=== PATIENT | female | born 1980 | race Caucasian/White ===

== ENCOUNTER → 2023-08-19 | Outpatient (CLI) | payer OTHER ==
--- NOTE | 2023-08-19 14:02 | P.GSCN ---
History of Present Illness Consult date: 08/19/23 Reason for Consult: abnormal left breast mammogram Requesting physician: August Felder History of present illness: Glenna is a 43 year old female seen in consultation for Dr. Felder regarding a left breast ultrasound abnormality. She had a bilateral mammogram on 05-21-22 which led to a left breast ultrasound and this was requested to be repeated in 6 months. She had a left breast mammogram and ultrasound on 12-15-22 which was BIRAD 3 and recommended to repeat left breast evaluation in 6 months.. She has some nodularity in the lateral aspect of her left breast which has been present for at least 26 years. It gets more full just before her menstrual cycle but then goes down. It has not changed recently. She has no other new lumps masses or nodules of concern in her breast. She has however been getting repeat left breast radiographic evaluations for the past several years and would like to have more definitive answer as to what is happening in that breast. Complaining of any recent trauma or infection in her breast. She is not complaining of any nipple discharge or skin changes. She has never had any surgery on her breast. 07-07-[address] Felder review mammogram results 05-21-22 12-15-22 order new radiographs of the breast; bilateral mammogram and left breast ultrasound now Caffeine: 2 cups coffee/day nicotine: < 1 PPD for 20 years chocolate: occasional BCP: depo shot one time many years ago hormoens: none Family History: mother: esophogeal cancer, smoker maternal grandmother: cervical cancer paternal grandmother: lung cancer Hormonal History: menarche: 13 , breast fed: no, age at first : 16 periods irregular, LMP: 2 weeks ago Surgical History: tubal Medical History: D3 Social History: nicotine: as above alcohol: none drugs: Marijuana daily for anxiety Review of Systems - Constitutional Reports sweats - EENT Eyes: denies blurred vision Ears: deny: decreased hearing, tinnitus Ears, nose, mouth and throat: Denies dysphagia - Breasts bilateral: as per HPI - Cardiovascular Denies chest pain, Denies shortness of breath - Respiratory Denies cough, Denies 7 - Gastrointestinal Reports as per HPI - Genitourinary Genitourinary: Denies dysuria, Denies hematuria Menstruation: Reports menses variable - Integumentary Denies rash, Denies unusual bruising - Neurological Denies headaches, Denies syncope - Psychiatric Reports anxiety - Endocrine Reports fatigue - Hematologic/Lymphatic Reports as per HPI - Allergic/Immunologic Reports seasonal allergies Medications and Allergies Allergies Allergy/AdvReac Type Severity Reaction Status Date / Time No Known Allergies Allergy Verified 08/19/23 13:10 Surgical - Exam - General no distress - Eyes normal ocular movement - ENT no hearing loss - Neck trachea midline - Respiratory normal respiratory effort, clear to auscultation - Cardiovascular Heart Sounds: normal: S1, S2 - Abdomen Abdomen: soft, non tender, no guarding, no rigid, no rebound - Integumentary normal turgor - Neurologic no disoriented, no combative - Musculoskeletal normal gait - Psychiatric oriented to time, oriented to person, oriented to place, speech is normal, memory intact Breast Exam: BRA: 34C Inspection: Right breast larger than left breast, right breast grade 2/3 ptosis left breast stage II ptosis Palpation: Right breast: Multi positional exam dense tissue with fibrocystic changes Right axilla: No adenopathy of concern Left breast: Multi positional exam dense tissue, increased nodularity upper outer quadrant region Left axilla: No adenopathy of concern Results Patient's mammogram from last year reviewed Assessment and Plan Assessment: Impession: Chronic nodularity left breast Fibrocystic breast changes Nicotine dependence Plan: Bilateral mammogram with possible left breast ultrasound Patient is going to consider lifestyle modification, caffeine/nicotine/marijuana may all contribute to fibrocystic breast changes/patient is perimenopausal and hormone fluctuations may also contribute. To breast changes Patient will follow-up after radiographic evaluation of the breast CC: Dr. Hilliard
[2023-08-19 14:08] VITALS: BP 125/82; PULSE 88; RESP 16; TEMP 97.7
== END ==
LOC: WWCWWP 12:57
PROVIDERS: ATTEND Surgery
DX: N63.20 Unspecified lump in the left breast, unspecified quadrant (principal); N60.11 Diffuse cystic mastopathy of right breast; F17.210 Nicotine dependence, cigarettes, uncomplicated

== ENCOUNTER → 2023-09-09 | Outpatient (CLI) | payer OTHER ==
--- NOTE | 2023-09-10 11:44 | MM ---
Reason for Exam: Additional evaluation requested from abnormal screening. Last screening mammogram was performed 9 month(s) ago. Patient History: Menarche at age 13. First Full-Term at age 16. Last menstrual period: 09/06/2023 Risk Values: Annetta 5 year model risk: 0.5%. NCI Lifetime model risk: 6.5%. Prior Study Comparison: 05/20/2021 Bilateral Screening Mammogram, Unknown. 06/03/2021 Left Diagnostic Mammogram, Unknown. 06/03/2021 Left Diagnostic Ultrasound, Unknown. 12/18/2021 Left Diagnostic Mammogram, Unknown. 05/21/2022 Left Diagnostic Mammogram, Unknown. 12/15/2022 Bilateral Diagnostic Mammogram, Unknown. 12/15/2022 Left Diagnostic Ultrasound, Unknown. Tissue Density: The breasts are heterogeneously dense, which may obscure small masses. Findings: Analyzed By CAD. No evidence for distinct mass or microcalcification. No distortion seen. Overall Assessment: Benign, BI-RAD 2 Management: Screening Mammogram of both breasts in 1 year. Results were given to the patient verbally at the time of exam. Patient should continue monthly self-breast exams. A clinical breast exam by your physician is recommended on an annual basis. This exam should not preclude additional follow-up of suspicious palpable abnormalities. Note on Annetta scores and lifetime risk: 1. A Annetta score greater than 3% is considered moderate risk. If this is the case, consider specialist referral to assess eligibility for a risk reducing agent. 2. If overall lifetime risk for the development of breast cancer is 20% or higher, the patient may qualify for future screening with alternating mammogram and breast MRI. Electronically signed and approved by: Karel Pierre M.D. Radiologis
== END | disposition home or self-care (01) ==
LOC: RADMAMWWP 07:47
PROVIDERS: ATTEND Surgery
DX: R92.333 Mammographic heterogeneous density, bilateral breasts (principal); R92.8 Other abnormal and inconclusive findings on diagnostic imaging of breast
CPT/HCPCS: 77066; G0279; 77062

== ENCOUNTER → 2023-10-22 | Outpatient (CLI) | payer OTHER ==
[2023-10-22 15:10] VITALS: BP 121/84; PULSE 86; RESP 16; TEMP 98.7
--- NOTE | 2023-10-22 15:45 | P.PN ---
Subjective Progress Note Date: 10/22/23 Principal diagnosis: fibrocystic breast changes, fullness UOQ August Felder History of present illness: Glenna is a 43 year old female seen in consultation for Dr. Felder regarding a left breast ultrasound abnormality. She had a bilateral mammogram on 05-21-22 which led to a left breast ultrasound and this was requested to be repeated in 6 months. She had a left breast mammogram and ultrasound on 12-15-22 which was BIRAD 3 and recommended to repeat left breast evaluation in 6 months.. She has some nodularity in the lateral aspect of her left breast which has been present for at least 26 years. It gets more full just before her menstrual cycle but then goes down. It has not changed recently. She has no other new lumps masses or nodules of concern in her breast. She has however been getting repeat left breast radiographic evaluations for the past several years and would like to have more definitive answer as to what is happening in that breast. Complaining of any recent trauma or infection in her breast. She is not complaining of any nipple discharge or skin changes. She has never had any surgery on her breast. 07-07-[address] Felder review mammogram results 05-21-22 12-15-22 order new radiographs of the breast; bilateral mammogram and left breast ultrasound now 10-22-23 Bilateral mammogram on 09-09-23 personally interpreted; BIRAD 2 Planing of any new lumps masses or nodules of concern in either breast Does have intermittent fullness of the upper outer quadrant of the left breast however she states it has been like that since her daughter was born in 2005, she did not breast feed Caffeine: 2 cups coffee/day nicotine: < 1 PPD for 20 years chocolate: occasional BCP: depo shot one time many years ago hormoens: none Family History: mother: esophogeal cancer, smoker maternal grandmother: cervical cancer paternal grandmother: lung cancer Hormonal History: menarche: 13 , breast fed: no, age at first : 16 periods irregular, LMP: 2 weeks ago Surgical History: tubal Medical History: takes vitamin D3 Social History: nicotine: as above alcohol: none drugs: Marijuana daily for anxiety Review of Systems - Constitutional Reports sweats - EENT Eyes: denies blurred vision Ears: deny: decreased hearing, tinnitus Ears, nose, mouth and throat: Denies dysphagia - Breasts bilateral: as per HPI - Cardiovascular Denies chest pain, Denies shortness of breath - Respiratory Denies cough - Gastrointestinal Reports as per HPI - Genitourinary Genitourinary: Denies dysuria, Denies hematuria Menstruation: Reports menses variable - Integumentary Denies rash, Denies unusual bruising - Neurological Denies headaches, Denies syncope - Psychiatric Reports anxiety - Endocrine Reports fatigue - Hematologic/Lymphatic Reports as per HPI - Allergic/Immunologic Reports seasonal allergies Medications and Allergies Allergies Allergy/AdvReac Type Severity Reaction Status Date / Time No Known Allergies Allergy Verified 08/19/23 13:10 Objective - Vital Signs Vital signs: Vital Signs Temp 98.7 F 10/22/23 15:07 Pulse 86 10/22/23 15:07 Resp 16 10/22/23 15:07 BP 121/84 10/22/23 15:07 Pulse Ox 95 10/22/23 15:07 FiO2 Intake & Output 10/21/23 10/22/23 10/22/23 18:59 06:59 18:59 Weight 72.575 kg - Constitutional General appearance: Present: cooperative - EENT Eyes: Present: EOMI ENT: Present: hearing grossly normal - Neck Neck: Present: normal ROM - Respiratory Respiratory: bilateral: CTA - Cardiovascular Rhythm: regular Heart sounds: normal: S1, S2 - Integumentary Integumentary: Present: normal turgor - Musculoskeletal Musculoskeletal: Present: gait normal - Psychiatric Psychiatric: Present: A&O x's 3, appropriate affect, intact judgment & insight - Additional findings Additional findings: Breast Exam: BRA: 34C Inspection: Right breast larger than left breast, right breast grade 2/3 ptosis left breast stage II ptosis Palpation: Right breast: Multi positional exam dense tissue with fibrocystic changes Right axilla: No adenopathy of concern Left breast: Multi positional exam dense tissue, increased nodularity upper outer quadrant region Left axilla: No adenopathy of concern Assessment and Plan Assessment: Impession: Chronic nodularity left breast Fibrocystic breast changes Nicotine dependence fullness left breast UOQ Plan: Bilateral mammogram one year left breast ultrasound attention to UOQ then follow up Patient is going to consider lifestyle modification, caffeine/nicotine/marijuana (she has been decreasing these) may all contribute to fibrocystic breast changes/patient is perimenopausal and hormone fluctuations may also contribute. To breast changes Patient will follow-up after radiographic evaluation of the breast CC: Dr. Hilliard
== END ==
LOC: WWCWWP 14:41
PROVIDERS: ATTEND Surgery
DX: N60.11 Diffuse cystic mastopathy of right breast (principal); N63.21 Unspecified lump in the left breast, upper outer quadrant; F17.210 Nicotine dependence, cigarettes, uncomplicated

== ENCOUNTER → 2023-12-03 | Outpatient (CLI) | payer OTHER ==
--- NOTE | 2023-12-03 13:24 | USB ---
Patient History: Menarche at age 13. First Full-Term at age 16. Risk Values: Annetta 5 year model risk: 0.5%. NCI Lifetime model risk: 6.5%. Technique: Method: Targeted. Prior Study Comparison: 05/21/2022 Left Diagnostic Mammogram, Unknown. 12/15/2022 Bilateral Diagnostic Mammogram, Unknown. 09/09/2023 Bilateral MG 3D diag mammo w/cad MARIA D, [facility]. Findings: The area of palpable concern of the left breast, the axilla of the left breast and the retroareolar of the left breast were scanned. Targeted ultrasound 2:00 position, axilla, and subareolar region. At the patient's 2:00 palpable site, there is a large clump of dense fibroglandular tissue measuring 4.2 x 4.2 x 1.3 cm. No suspicious solid or cystic lesion. There is a benign subareolar cyst measuring 8 mm. No axillary lymphadenopathy.. Overall Assessment: Benign, BI-RAD 2 Management: Diagnostic Mammogram of both breasts in 9 months. Given the complex, dense breast tissue on mammogram, in time for the patient's annual exam. A clinical breast exam by your physician is recommended on an annual basis and results should be correlated with mammographic findings. This exam should not preclude additional follow-up of suspicious palpable abnormalities. Results were given to the patient verbally at the time of exam. Electronically signed and approved by: Carley Morales M.D. Radiologist
== END | disposition home or self-care (01) ==
LOC: RADUSWWP 12:43
PROVIDERS: ATTEND Surgery
DX: R92.8 Other abnormal and inconclusive findings on diagnostic imaging of breast (principal)

== ENCOUNTER → 2023-12-03 | Outpatient (CLI) | payer OTHER ==
--- NOTE | 2023-12-03 13:39 | P.PN ---
Subjective Progress Note Date: 12/03/23 Principal diagnosis: mass left breast UOQ 10/22/23 Principal diagnosis: fibrocystic breast changes, fullness UOQ August Felder History of present illness: Glenna is a 43 year old female seen in consultation for Dr. Felder regarding a left breast ultrasound abnormality. She had a bilateral mammogram on 05-21-22 which led to a left breast ultrasound and this was requested to be repeated in 6 months. She had a left breast mammogram and ultrasound on 12-15-22 which was BIRAD 3 and recommended to repeat left breast evaluation in 6 months.. She has some nodularity in the lateral aspect of her left breast which has been present for at least 26 years. It gets more full just before her menstrual cycle but then goes down. It has not changed recently. She has no other new lumps masses or nodules of concern in her breast. She has however been getting repeat left breast radiographic evaluations for the past several years and would like to have more definitive answer as to what is happening in that breast. Complaining of any recent trauma or infection in her breast. She is not complaining of any nipple discharge or skin changes. She has never had any surgery on her breast. 07-07-[address] Felder review mammogram results 05-21-22 12-15-22 order new radiographs of the breast; bilateral mammogram and left breast ultrasound now 10-22-23 Bilateral mammogram on 09-09-23 personally interpreted; BIRAD 2 Planing of any new lumps masses or nodules of concern in either breast Does have intermittent fullness of the upper outer quadrant of the left breast however she states it has been like that since her daughter was born in 2005, she did not breast feed 12-03-23 ultrasound of the left breast done on 12-03-23 this was BIRAD 2 cystic tissue noted but no discrete dense mass or nodule of concern noted; at the patient's 2:00 palpable site there is a large clump of dense fibroglandular tissue measuring 4.2 x 4.2 x 1.3 cm. No suspicious solid or cystic lesion was noted. There is a benign subareolar cyst measuring 8 mm. No axillary lymphadenopathy. The patient was recommended to have a diagnostic mammogram of both breast in 9 months Given the complex dense breast tissue Caffeine: 2 cups coffee/day nicotine: < 1 PPD for 20 years chocolate: occasional BCP: depo shot one time many years ago hormoens: none Family History: mother: esophogeal cancer, smoker maternal grandmother: cervical cancer paternal grandmother: lung cancer Hormonal History: menarche: 13 , breast fed: no, age at first : 16 periods irregular, LMP: 2 weeks ago Surgical History: tubal Medical History: takes vitamin D3 Social History: nicotine: as above alcohol: none drugs: Marijuana daily for anxiety Review of Systems - Constitutional Reports sweats - EENT Eyes: denies blurred vision Ears: deny: decreased hearing, tinnitus Ears, nose, mouth and throat: Denies dysphagia - Breasts bilateral: as per HPI - Cardiovascular Denies chest pain, Denies shortness of breath - Respiratory Denies cough - Gastrointestinal Reports as per HPI - Genitourinary Genitourinary: Denies dysuria, Denies hematuria Menstruation: Reports menses variable - Integumentary Denies rash, Denies unusual bruising - Neurological Denies headaches, Denies syncope - Psychiatric Reports anxiety - Endocrine Reports fatigue - Hematologic/Lymphatic Reports as per HPI - Allergic/Immunologic Reports seasonal allergies Medications and Allergies Allergies Allergy/AdvReac Type Severity Reaction Status Date / Time No Known Allergies Allergy Verified 08/19/23 13:10 Objective - Vital Signs Vital signs: Vital Signs Temp 98.7 F 10/22/23 15:07 Pulse 86 10/22/23 15:07 Resp 16 10/22/23 15:07 BP 121/84 10/22/23 15:07 Pulse Ox 95 10/22/23 15:07 FiO2 Intake & Output 10/21/23 10/22/23 10/22/23 18:59 06:59 18:59 Weight 72.575 kg - Constitutional General appearance: Present: cooperative - EENT Eyes: Present: EOMI ENT: Present: hearing grossly normal - Neck Neck: Present: normal ROM - Respiratory Respiratory: bilateral: CTA - Cardiovascular Rhythm: regular Heart sounds: normal: S1, S2 - Integumentary Integumentary: Present: normal turgor - Musculoskeletal Musculoskeletal: Present: gait normal - Psychiatric Psychiatric: Present: A&O x's 3, appropriate affect, intact judgment & insight - Additional findings Additional findings: Breast Exam: BRA: 34C Inspection: Right breast larger than left breast, right breast grade 2/3 ptosis left breast stage II ptosis Palpation: Right breast: Multi positional exam dense tissue with fibrocystic changes Right axilla: No adenopathy of concern Left breast: Multi positional exam dense tissue, increased nodularity upper outer quadrant region Left axilla: No adenopathy of concern Assessment and Plan Assessment: Impession: Chronic nodularity left breast Fibrocystic breast changes Nicotine dependence fullness left breast UOQ Plan: Bilateral mammogram one year left breast ultrasound attention to UOQ then follow up Patient is going to consider lifestyle modification, caffeine/nicotine/marijuana (she has been decreasing these) may all contribute to fibrocystic breast changes/patient is perimenopausal and hormone fluctuations may also contribute. To breast changes Patient will follow-up after radiographic evaluation of the breast CC: Dr. Hilliard Additional CC's: August Felder Objective - Constitutional General appearance: Present: cooperative - EENT Eyes: Present: EOMI ENT: Present: hearing grossly normal - Neck Neck: Present: normal ROM - Respiratory Respiratory: bilateral: CTA - Cardiovascular Heart sounds: normal: S1, S2 - Integumentary Integumentary: Present: normal turgor - Musculoskeletal Musculoskeletal: Present: gait normal - Psychiatric Psychiatric: Present: A&O x's 3, appropriate affect, intact judgment & insight - Additional findings Additional findings: Breast Exam: BRA: 34C Inspection: Right breast larger than left breast, right breast grade 2/3 ptosis left breast stage II ptosis Palpation: Right breast: Multi positional exam dense tissue with fibrocystic changes Right axilla: No adenopathy of concern Left breast: Multi positional exam dense tissue, increased nodularity upper outer quadrant region this is discretely palpable and is approximately 2 x 3 cm in size Left axilla: No adenopathy of concern Assessment and Plan Assessment: Impession: Chronic nodularity left breast Fibrocystic breast changes Nicotine dependence fullness left breast UOQ/ultrasound from 12-03-2023 reveals a clump of dense fibroglandular tissue with no suspicious solid or cystic lesion Plan: Bilateral mammogram 9 months Patient is going to consider lifestyle modification, caffeine/nicotine/marijuana (she has been decreasing these) may all contribute to fibrocystic breast changes/patient is perimenopausal and hormone fluctuations may also contribute core biopsy of the palpable mass in the upper outer quadrant of the left breast CC: Dr. Hilliard
[2023-12-03 13:46] VITALS: BP 135/87; PULSE 82; RESP 16; TEMP 97.6
== END ==
LOC: WWCWWP 12:47
PROVIDERS: ATTEND Surgery
DX: N63.21 Unspecified lump in the left breast, upper outer quadrant (principal); N60.12 Diffuse cystic mastopathy of left breast; F17.200 Nicotine dependence, unspecified, uncomplicated